=== PATIENT | male | born 1965 | race Caucasian/White ===

== ENCOUNTER 2017-11-12 16:27 | Inpatient (IN) | payer OTHER ==
[~2017-11-12] VITALS: Ht 170.2 cm; Wt 61.5 kg
[2017-11-12] MEDS ORDERED: SUCCINYLCHOLINE CHLORIDE 20 MG/ML 10 ML VIAL IM ONE (16:41)
[2017-11-12] MEDS ORDERED: ETOMIDATE 2 MG/ML 10 ML VIAL IV ONE (16:41)
[2017-11-12] MEDS ORDERED: ETOMIDATE 2 MG/ML 10 ML VIAL IVP ONE (16:45)
[2017-11-12] MEDS ORDERED: SODIUM CHLORIDE 0.9% 1,000 ML IV ONE ×2 (16:45→18:00)
[2017-11-12] MEDS ORDERED: SUCCINYLCHOLINE CHLORIDE 20 MG/ML 10 ML VIAL IVP ONE ×2 (16:45)
[2017-11-12 16:54] LABS: BASOPHILS % (AUTO) 0.4 % (0.0-2.0); EOSINOPHILS % (AUTO) 0 % (1.0-6.0); HEMATOCRIT 27.1 % (41-53); HEMOGLOBIN 9.4 g/dL (13.5-17.5); LYMPHOCYTES % (AUTO) 4.7 % (22.0-44.0); MEAN CORPUSCULAR HEMOGLOBIN 29.8 pg (26.0-34.0); MEAN CORPUSCULAR HGB CONC 34.8 G/dL (31.0-37.0); MEAN CORPUSCULAR VOLUME 86 fL (80-100); MONOCYTES % (AUTO) 14.5 % (2.0-9.0); NEUTROPHILS # (AUTO) 16.8 K/uL (1.8-7.7); NEUTROPHILS % (AUTO) 80.4 % (40.0-70.0); PLATELET COUNT (AUTO) 357 K/uL (150-450); RED BLOOD CELL COUNT(AUTO) 3.17 MIL/uL (4.50-5.90); RED CELL DISTRIBUTION WIDTH 19.1 % (11.5-14.5)
[2017-11-12] MEDS ORDERED: ACETAMINOPHEN 1000 MG/ISO-OSM 100 ML IV ONE (17:00)
[2017-11-12 17:05] LABS: INR 1.5 (0.9-1.1); PROTHROMBIN TIME 15.4 SEC (9.4-11.6)
[2017-11-12 17:23] LABS: ABG A-A DIFF O2 171.3 mmHg (10-20.0); ABG BASE EXCESS -11.5 mmol/L (-2.0-3.0); ABG CARBOXYHEMOGLOBIN 0.2 % (0.0-1.5); ABG HCO3 15.9 mmol/L (22.0-26.0); ABG METHEMOGLOBIN 0.6 % (0.0-1.5); ABG OXYGEN CONTENT 14.6 mL/dL (15.0-23.0); ABG OXYGEN SATURATION 99.7 % (95.0-98.0); ABG OXYHEMOGLOBIN 98.9 % (94.0-100.0); ABG PCO2 41 mmHg (35-45); ABG PH 7.217 (7.35-7.450); ABG TOTAL HEMOGLOBIN 9.5 G/dL (12.0-18.0); PO2, ARTERIAL BG 496.4 mmHg (84.0-92.0); SOURCE, BLOOD GAS ARTERIAL; TEMPERATURE, FAHRENHEIT, BG 101.4 FAHREN (96.0-98.6)
[2017-11-12 17:25] LABS: B-TYPE NATRIURETIC PEPTIDE 316 pg/mL (0-100)
[2017-11-12 17:29] LABS: ALANINE AMINOTRANSFERASE 29 U/L (12-78); ALKALINE PHOSPHATASE 180 U/L (46-116); ANION GAP 14 mmol/L (8-16); ASPARTATE AMINOTRANSFERASE 61 U/L (15-37); BILIRUBIN,TOTAL 3.3 mg/dL (0.1-1.0); CALCIUM, TOTAL 7.8 mg/dL (8.8-10.5); CARBON DIOXIDE 16 mmol/L (22-29); CHLORIDE 95 mmol/L (98-107); CREATINE KINASE MB 0.8 ng/mL (0-5); CREATINE KINASE, TOTAL 316 U/L (39-308); CREATININE 5.41 mg/dL (0.60-1.30); GLOMERULAR FILTR. RATE CALC 11 mL/min (>60); GLUCOSE,RANDOM 112 mg/dL (70-110); POTASSIUM 4.5 mmol/L (3.5-5.1); SODIUM SERUM 125 mmol/L (136-145); UREA NITROGEN, BLOOD 71 mg/dL (7-18)
[2017-11-12 17:30] LABS: ALBUMIN 1.6 g/dL (3.4-5.0); TOTAL PROTEIN, SERUM 8.8 g/dL (6.4-8.2)
[2017-11-12 17:30] LABS: APPEARANCE,URINE TURBID (CLEAR); GLUCOSE, URINE (UA) NEGATIVE (NEGATIVE); KETONES,URINE 40 mg/dL (NEGATIVE); LEUKOCYTE ESTERASE ,URINE LARGE (NEGATIVE); NITRATE,URINE POSITIVE (NEGATIVE); OCCULT BLOOD,URINE LARGE (NEGATIVE); PROTEIN,URINE SEE CONFIRM (NEGATIVE)
[2017-11-12 17:31] LABS: BILIRUBIN,URINE PRELIM. POSITIVE (NEGATIVE)
[2017-11-12 17:34] LABS: SULFOSALICYLIC ACID,URINE 4+ (Negative)
[2017-11-12 17:35] LABS: RBC,URINE Full Field /HPF (0-2)
[2017-11-12 17:36] LABS: BACTERIA,URINE Moderate /HPF (None Seen); SQUAMOUS EPITHELIAL CELL,UR Few /LPF (None Seen); TRANSITIONAL EPI CELLS,URINE Rare /LPF (None Seen); WBC,URINE 51-100 /HPF (0-5)
[2017-11-12 17:37] LABS: RENAL EPITHELIAL CELLS,URINE Rare /LPF (None Seen)
[2017-11-12 17:39] LABS: O2 DEVICE,BLOOD GAS VENTILATOR (ROOM AIR); SITE, BLOOD GAS RT RADIAL; VT, ABG 500 ml
[2017-11-12] MEDS: PROPOFOL 1000 MG/ISO-OSM 100 ML IV PRN ×2 (17:44→21:23)
[2017-11-12] MEDS ORDERED: CefTRIAXone SODIUM 1 GM in DEXTROSE 5%-WATER 10 ML IV ONE (17:45)
[2017-11-12] MEDS ORDERED: AZITHROMYCIN 500 MG/NS 250 ML IV ONE (17:45)
[2017-11-12 18:41] LABS: LACTIC ACID 2.9 mmol/L (0.4-2.0)
[2017-11-12 19:20] LABS: INFLUENZA TYPE A NEGATIVE FOR TYPE A (NEGATIVE); INFLUENZA TYPE B NEGATIVE FOR TYPE B (NEGATIVE)
[2017-11-12] MEDS ORDERED: ALBUTEROL SULFATE 2.5 MG/0.5 ML NEB SOLUTION NEB PRN (19:45)
[2017-11-12] MEDS ORDERED: VANCOMYCIN HCL 1 GM/D5% WATER 200 ML IV PRN (19:45)
[2017-11-12] MEDS ORDERED: IPRATROPIUM BROMIDE 0.5 MG/2.5 ML NEB SOLUTION NEB PRN (19:45)
[2017-11-12] MEDS ORDERED: VANCOMYCIN HCL 1 GM/D5% WATER 200 ML IV ONE (19:45)
[2017-11-12] MEDS ORDERED: ONDANSETRON HCL 4 MG/2 ML VIAL IVP PRN (19:45)
[2017-11-12] MEDS ORDERED: ACETAMINOPHEN 325 MG TABLET PO PRN (19:45)
[2017-11-12] MEDS ORDERED: BISACODYL 10 MG RECTAL RECTAL SUPPOSITORY PR PRN (19:45)
[2017-11-12 20:03] LABS: CALCIUM, TOTAL 7.2 mg/dL (8.8-10.5); CREATININE 5.21 mg/dL (0.60-1.30); POTASSIUM 4.2 mmol/L (3.5-5.1)
[2017-11-12 20:30] LABS: HEMOGLOBIN 8.4 g/dL (13.5-17.5)
[2017-11-12 21:00] VITALS: BP 132/78
[2017-11-12 21:12] LABS: LACTIC ACID 2.4 mmol/L (0.4-2.0)
[2017-11-12] MEDS ORDERED: SODIUM CHLORIDE 0.9% 250 ML IV ONE (21:19)
[2017-11-12] MEDS: PIPERACILLIN SODIUM/TAZOBACTAM 2.25 GM in DEXTROSE 5%-WATER 50 ML IV SCH (21:21)
[2017-11-12] MEDS: SODIUM BICARBONATE 150 MEQ in DEXTROSE 5%-WATER 1,000 ML IV SCH (21:23)
[2017-11-13] VITALS (12 sets, daily range): BP systolic 89–129; BP diastolic 58–83
[2017-11-13] MEDS ORDERED: INFLUENZA VIRUS VACCINE QVS 2017-18 (3YR+)/PF 60 MCG/0.5 ML SYRINGE IM ONE (00:30)
[2017-11-13] MEDS ORDERED: PNEUMOCOCCAL VACCINE POLYVALENT 0.5 ML VIAL [PPSV23] IM ONE (00:30)
[2017-11-13 02:23] LABS: HEMOGLOBIN 7.1 g/dL (13.5-17.5)
[2017-11-13 02:30] LABS: HEMATOCRIT 20.5 % (41-53)
[2017-11-13 02:34] LABS: CALCIUM, TOTAL 7.2 mg/dL (8.8-10.5); CREATININE 5.75 mg/dL (0.60-1.30); POTASSIUM 3.6 mmol/L (3.5-5.1)
[2017-11-13] MEDS: PIPERACILLIN SODIUM/TAZOBACTAM 2.25 GM in DEXTROSE 5%-WATER 50 ML IV SCH ×3 (04:11→21:11)
[2017-11-13 06:03] LABS: AMPHET/METH SCREEN,URINE NEGATIVE (NEGATIVE); BARBITURATE SCREEN, URINE NEGATIVE (NEGATIVE); BENZODIAZEPINES SCREEN,URINE NEGATIVE (NEGATIVE); CANNABINOID SCREEN,URINE NEGATIVE (NEGATIVE); COCAINE SCREEN,URINE NEGATIVE (NEGATIVE); METHADONE SCREEN, URINE NEGATIVE (NEGATIVE); OPIATE SCREEN,URINE NEGATIVE (NEGATIVE)
[2017-11-13 06:06] LABS: PHENCYCLIDINE SCREEN,URINE NEGATIVE (NEGATIVE)
[2017-11-13] MEDS: SODIUM BICARBONATE 150 MEQ in DEXTROSE 5%-WATER 1,000 ML IV SCH ×2 (06:32→21:11)
[2017-11-13 06:54] LABS: BASOPHILS % (AUTO) 0.2 % (0.0-2.0); EOSINOPHILS % (AUTO) 0.1 % (1.0-6.0); HEMOGLOBIN 7.2 g/dL (13.5-17.5); LYMPHOCYTES # (AUTO) 2.1 K/uL (1.0-4.8); MEAN CORPUSCULAR VOLUME 86 fL (80-100); MONOCYTES # (AUTO) 2.7 K/uL (0.1-1.0); MONOCYTES % (AUTO) 12.6 % (2.0-9.0); NEUTROPHILS # (AUTO) 16.4 K/uL (1.8-7.7); NEUTROPHILS % (AUTO) 77.1 % (40.0-70.0); PLATELET COUNT (AUTO) 193 K/uL (150-450); RED CELL DISTRIBUTION WIDTH 18.7 % (11.5-14.5)
[2017-11-13 06:58] LABS: HEMATOCRIT 20.5 % (41-53)
[2017-11-13 07:11] LABS: % IRON SATURATION 21.3 % (30-44)
[2017-11-13 07:23] LABS: ALBUMIN 1.1 g/dL (3.4-5.0); CALCIUM, TOTAL 7.3 mg/dL (8.8-10.5); CHOL/HDL RATIO 11.8 (4.2-7.3); CREATININE 5.66 mg/dL (0.60-1.30); FREE T4 (FREE THYROXINE) 0.97 ng/dL (0.76-1.46); MAGNESIUM 1.6 mg/dL (1.80-2.40); PHOSPHORUS 6.1 mg/dL (2.5-4.9); POTASSIUM 3.5 mmol/L (3.5-5.1); THYROID STIMULATING HORMONE 1.38 uIU/mL (0.36-3.74); TOTAL PROTEIN, SERUM 6.6 g/dL (6.4-8.2)
[2017-11-13] MEDS ORDERED: PANTOPRAZOLE SODIUM 40 MG/VIAL IVP SCH (09:00)
[2017-11-13] MEDS: PANTOPRAZOLE SODIUM 40 MG/VIAL IVP SCH ×2 (09:05→21:11)
[2017-11-13] MEDS: EPOETIN ALFA 10,000 UNITS/ML VIAL SQ SCH (09:05)
[2017-11-13] MEDS ORDERED: PERMETHRIN 5% 60 GM CREAM TP ONE (10:00)
[2017-11-13 10:13] LABS: ABG A-A DIFF O2 100.5 mmHg (10-20.0); ABG BASE EXCESS -6.4 mmol/L (-2.0-3.0); ABG CARBOXYHEMOGLOBIN 0.1 % (0.0-1.5); ABG HCO3 20.1 mmol/L (22.0-26.0); ABG METHEMOGLOBIN 0.4 % (0.0-1.5); ABG OXYGEN CONTENT 11.2 mL/dL (15.0-23.0); ABG OXYGEN SATURATION 98.8 % (95.0-98.0); ABG OXYHEMOGLOBIN 98.3 % (94.0-100.0); ABG PH 7.544 (7.35-7.450); PO2, ARTERIAL BG 126.8 mmHg (84.0-92.0); SOURCE, BLOOD GAS ARTERIAL; TEMPERATURE, FAHRENHEIT, BG 98.6 FAHREN (96.0-98.6)
[2017-11-13 10:17] LABS: ABG PCO2 19 mmHg (35-45); ABG TOTAL HEMOGLOBIN 7.9 G/dL (12.0-18.0); O2 DEVICE,BLOOD GAS VENTILATOR (ROOM AIR); SITE, BLOOD GAS RT RADIAL
[2017-11-13 10:18] LABS: PEEP,BG 5 cm H2O; VT, ABG 500 ml
[2017-11-13] MEDS ORDERED: FUROSEMIDE 20 MG/2 ML VIAL IVP ONE (11:30)
[2017-11-13] MEDS: LACTULOSE 20 GM/30 ML SOLUTION UDCUP PO SCH ×3 (11:50→23:36)
[2017-11-13] MEDS ORDERED: SODIUM CHLORIDE 0.9% 250 ML IV ONE ×3 (11:51→16:22)
[2017-11-13] MEDS ORDERED: MAGNESIUM SULFATE 1 GM in DEXTROSE 5%-WATER 50 ML IV ONE ×2 (12:00→12:30)
[2017-11-13] MEDS: SOD FERRIC GLUC COMPLX/SUCROSE 125 MG in SODIUM CHLORIDE 0.9% 100 ML IV SCH (13:29)
[2017-11-13 14:30] LABS: HEMATOCRIT 21.7 % (41-53); HEMOGLOBIN 7.5 g/dL (13.5-17.5)
[2017-11-13] MEDS: PROPOFOL 1000 MG/ISO-OSM 100 ML IV PRN (16:45)
[2017-11-13 20:45] LABS: HEMATOCRIT 26.9 % (41-53); HEMOGLOBIN 9.2 g/dL (13.5-17.5)
[2017-11-14] VITALS (9 sets, daily range): BP systolic 107–121; BP diastolic 58–72
[2017-11-14] MEDS ORDERED: HEPARIN SODIUM,PORCINE 1,000 UNITS/ML VIAL IVP ONE ×3 (01:38→10:15)
[2017-11-14] MEDS: PROPOFOL 1000 MG/ISO-OSM 100 ML IV PRN ×3 (02:13→20:40)
[2017-11-14 02:30] LABS: HEMOGLOBIN 8.3 g/dL (13.5-17.5)
[2017-11-14] MEDS: PIPERACILLIN SODIUM/TAZOBACTAM 2.25 GM in DEXTROSE 5%-WATER 50 ML IV SCH ×3 (05:20→20:40)
[2017-11-14] MEDS: LACTULOSE 20 GM/30 ML SOLUTION UDCUP PO SCH ×4 (05:20→23:25)
[2017-11-14 05:30] LABS: BASOPHILS % (AUTO) 0.4 % (0.0-2.0); EOSINOPHILS % (AUTO) 1.4 % (1.0-6.0); HEMATOCRIT 23.3 % (41-53); HEMOGLOBIN 8.2 g/dL (13.5-17.5); LYMPHOCYTES # (AUTO) 1.2 K/uL (1.0-4.8); LYMPHOCYTES % (AUTO) 8.9 % (22.0-44.0); MEAN CORPUSCULAR HEMOGLOBIN 30.2 pg (26.0-34.0); MEAN CORPUSCULAR HGB CONC 35.2 G/dL (31.0-37.0); MEAN CORPUSCULAR VOLUME 86 fL (80-100); MONOCYTES # (AUTO) 1.6 K/uL (0.1-1.0); MONOCYTES % (AUTO) 12.1 % (2.0-9.0); NEUTROPHILS # (AUTO) 10.2 K/uL (1.8-7.7); NEUTROPHILS % (AUTO) 77.2 % (40.0-70.0); PLATELET COUNT (AUTO) 158 K/uL (150-450); RED BLOOD CELL COUNT(AUTO) 2.72 MIL/uL (4.50-5.90); RED CELL DISTRIBUTION WIDTH 18.3 % (11.5-14.5)
[2017-11-14 05:43] LABS: CALCIUM, TOTAL 7.3 mg/dL (8.8-10.5); CREATININE 6.03 mg/dL (0.60-1.30); MAGNESIUM 1.9 mg/dL (1.80-2.40); PHOSPHORUS 6.4 mg/dL (2.5-4.9); POTASSIUM 3.4 mmol/L (3.5-5.1); THYROID STIMULATING HORMONE 1.71 uIU/mL (0.36-3.74); VANCOMYCIN,RANDOM 15.1 mcg/mL (25.0-50.0)
[2017-11-14] MEDS: SODIUM BICARBONATE 150 MEQ in DEXTROSE 5%-WATER 1,000 ML IV SCH (07:50)
[2017-11-14] MEDS: PANTOPRAZOLE SODIUM 40 MG/VIAL IVP SCH ×2 (07:52→20:39)
[2017-11-14] MEDS ORDERED: DEXTROSE 50%-WATER 25 GM/50 ML SYRINGE IVP PRN (08:00)
[2017-11-14 08:26] LABS: HEMATOCRIT 23.9 % (41-53); HEMOGLOBIN 8.3 g/dL (13.5-17.5)
[2017-11-14] MEDS ORDERED: MORPHINE SULFATE 2 MG/ML SYRINGE ONE (09:55)
[2017-11-14] MEDS ORDERED: MORPHINE SULFATE 2 MG/ML SYRINGE IVP ONE (10:00)
[2017-11-14 14:17] LABS: HEMATOCRIT 23.8 % (41-53); HEMOGLOBIN 8.4 g/dL (13.5-17.5)
[2017-11-14] MEDS: SOD FERRIC GLUC COMPLX/SUCROSE 125 MG in SODIUM CHLORIDE 0.9% 100 ML IV SCH (14:29)
[2017-11-14 15:37] LABS: CREATININE,URINE RANDOM 124.3 mg/dL (30.0-125.0)
[2017-11-14] MEDS ORDERED: VANCOMYCIN HCL 1 GM/D5% WATER 200 ML IV ONE (16:00)
[2017-11-14 17:43] LABS: ABG A-A DIFF O2 107.8 mmHg (10-20.0); ABG BASE EXCESS 2.4 mmol/L (-2.0-3.0); ABG CARBOXYHEMOGLOBIN 0.5 % (0.0-1.5); ABG HCO3 26.8 mmol/L (22.0-26.0); ABG OXYGEN CONTENT 13.3 mL/dL (15.0-23.0); ABG OXYHEMOGLOBIN 97.5 % (94.0-100.0); ABG PCO2 32 mmHg (35-45); ABG PH 7.519 (7.35-7.450); ABG TOTAL HEMOGLOBIN 9.6 G/dL (12.0-18.0); PO2, ARTERIAL BG 105.2 mmHg (84.0-92.0); TEMPERATURE, FAHRENHEIT, BG 97.8 FAHREN (96.0-98.6)
[2017-11-14 17:45] LABS: O2 DEVICE,BLOOD GAS VENTILATOR (ROOM AIR); SITE, BLOOD GAS RT RADIAL; SOURCE, BLOOD GAS ARTERIAL; VT, ABG 450 ml
[2017-11-14 17:46] LABS: PEEP,BG 5 cm H2O; SPONTANEOUS VT, BG 419 ml
[2017-11-14 18:33] LABS: GLUCOSE,POINT OF CARE 107 MG/DL (70-110)
[2017-11-15] VITALS (8 sets, daily range): BP systolic 99–116; BP diastolic 53–65
[2017-11-15] MEDS: PROPOFOL 1000 MG/ISO-OSM 100 ML IV PRN ×3 (03:50→21:28)
[2017-11-15] MEDS: LACTULOSE 20 GM/30 ML SOLUTION UDCUP PO SCH ×4 (05:05→23:56)
[2017-11-15] MEDS: PIPERACILLIN SODIUM/TAZOBACTAM 2.25 GM in DEXTROSE 5%-WATER 50 ML IV SCH ×3 (05:05→20:52)
[2017-11-15 05:21] LABS: EOSINOPHILS % (AUTO) 2.3 % (1.0-6.0); HEMATOCRIT 24.2 % (41-53); HEMOGLOBIN 8.4 g/dL (13.5-17.5); LYMPHOCYTES # (AUTO) 1.2 K/uL (1.0-4.8); LYMPHOCYTES % (AUTO) 10.1 % (22.0-44.0); MEAN CORPUSCULAR HEMOGLOBIN 30.1 pg (26.0-34.0); MEAN CORPUSCULAR HGB CONC 34.6 G/dL (31.0-37.0); MEAN CORPUSCULAR VOLUME 87 fL (80-100); MONOCYTES # (AUTO) 1.2 K/uL (0.1-1.0); MONOCYTES % (AUTO) 10.7 % (2.0-9.0); NEUTROPHILS # (AUTO) 8.8 K/uL (1.8-7.7); NEUTROPHILS % (AUTO) 75.9 % (40.0-70.0); PLATELET COUNT (AUTO) 141 K/uL (150-450); RED BLOOD CELL COUNT(AUTO) 2.78 MIL/uL (4.50-5.90); RED CELL DISTRIBUTION WIDTH 18.4 % (11.5-14.5)
[2017-11-15 05:40] LABS: CALCIUM, TOTAL 7.5 mg/dL (8.8-10.5); CREATININE 4.86 mg/dL (0.60-1.30); MAGNESIUM 1.8 mg/dL (1.80-2.40); PHOSPHORUS 5.3 mg/dL (2.5-4.9); POTASSIUM 3.1 mmol/L (3.5-5.1)
[2017-11-15 05:52] LABS: GLUCOSE,POINT OF CARE 91 MG/DL (70-110)
[2017-11-15 05:52] LABS: GLUCOSE,POINT OF CARE 113 MG/DL (70-110)
[2017-11-15] MEDS ORDERED: SODIUM CHLORIDE 0.9% 500 ML IV ONE (07:35)
[2017-11-15 08:35] LABS: ABG A-A DIFF O2 97.2 mmHg (10-20.0); ABG BASE EXCESS 0.4 mmol/L (-2.0-3.0); ABG CARBOXYHEMOGLOBIN 0.3 % (0.0-1.5); ABG HCO3 25.2 mmol/L (22.0-26.0); ABG METHEMOGLOBIN 0.2 % (0.0-1.5); ABG OXYGEN CONTENT 12.8 mL/dL (15.0-23.0); ABG OXYGEN SATURATION 98.6 % (95.0-98.0); ABG OXYHEMOGLOBIN 98.1 % (94.0-100.0); ABG PCO2 32 mmHg (35-45); ABG PH 7.491 (7.35-7.450); ABG TOTAL HEMOGLOBIN 9.1 G/dL (12.0-18.0); PO2, ARTERIAL BG 115.4 mmHg (84.0-92.0); SOURCE, BLOOD GAS ARTERIAL; TEMPERATURE, FAHRENHEIT, BG 98.6 FAHREN (96.0-98.6)
[2017-11-15 08:39] LABS: SITE, BLOOD GAS LFT RADIAL
[2017-11-15 08:40] LABS: O2 DEVICE,BLOOD GAS VENTILATOR (ROOM AIR); PEEP,BG 5 cm H2O; VT, ABG 450 ml
[2017-11-15] MEDS ORDERED: SODIUM CHLORIDE 0.9% 2,000 ML IV ONE (09:13)
[2017-11-15] MEDS: EPOETIN ALFA 10,000 UNITS/ML VIAL SQ SCH (09:16)
[2017-11-15] MEDS: PANTOPRAZOLE SODIUM 40 MG/VIAL IVP SCH ×2 (09:16→20:52)
[2017-11-15] MEDS ORDERED: HEPARIN SODIUM,PORCINE 1,000 UNITS/ML VIAL IVP ONE ×3 (11:45→17:50)
[2017-11-15] MEDS ORDERED: MANNITOL 25%-12.5 GM/50 ML VIAL IVP PRN (11:45)
[2017-11-15] MEDS: SOD FERRIC GLUC COMPLX/SUCROSE 125 MG in SODIUM CHLORIDE 0.9% 100 ML IV SCH (13:58)
[2017-11-15 16:30] LABS: HEMATOCRIT 25.9 % (41-53); HEMOGLOBIN 8.9 g/dL (13.5-17.5)
[2017-11-15] MEDS ORDERED: SODIUM CHLORIDE 0.9% 250 ML IV ONE (17:34)
[2017-11-15] MEDS: METOCLOPRAMIDE HCL 5 MG/ML 2 ML VIAL IVP SCH (17:37)
[2017-11-16] VITALS: BP 105/54
[2017-11-16] MEDS: METOCLOPRAMIDE HCL 5 MG/ML 2 ML VIAL IVP SCH ×4 (00:15→23:39)
[2017-11-16 04:00] VITALS: BP 108/59
[2017-11-16] MEDS: PIPERACILLIN SODIUM/TAZOBACTAM 2.25 GM in DEXTROSE 5%-WATER 50 ML IV SCH ×3 (04:53→21:12)
[2017-11-16] MEDS: LACTULOSE 20 GM/30 ML SOLUTION UDCUP PO SCH ×4 (05:12→23:39)
[2017-11-16 05:18] LABS: BASOPHILS % (AUTO) 1.2 % (0.0-2.0); EOSINOPHILS % (AUTO) 3.5 % (1.0-6.0); HEMOGLOBIN 8.3 g/dL (13.5-17.5); LYMPHOCYTES # (AUTO) 1.5 K/uL (1.0-4.8); MEAN CORPUSCULAR HGB CONC 34.5 G/dL (31.0-37.0); MEAN CORPUSCULAR VOLUME 87 fL (80-100); MONOCYTES # (AUTO) 1.5 K/uL (0.1-1.0); MONOCYTES % (AUTO) 13.9 % (2.0-9.0); NEUTROPHILS # (AUTO) 7.4 K/uL (1.8-7.7); NEUTROPHILS % (AUTO) 67.4 % (40.0-70.0); RED BLOOD CELL COUNT(AUTO) 2.76 MIL/uL (4.50-5.90); RED CELL DISTRIBUTION WIDTH 18.6 % (11.5-14.5)
[2017-11-16 05:54] LABS: CALCIUM, TOTAL 7.8 mg/dL (8.8-10.5); CREATININE 3.95 mg/dL (0.60-1.30); MAGNESIUM 1.8 mg/dL (1.80-2.40); POTASSIUM 3.5 mmol/L (3.5-5.1)
[2017-11-16] MEDS: PROPOFOL 1000 MG/ISO-OSM 100 ML IV PRN ×3 (06:35→17:02)
[2017-11-16 07:31] LABS: PLATELET COUNT (AUTO) 142 K/uL (150-450)
[2017-11-16 08:00] VITALS: BP 118/64
[2017-11-16 08:14] LABS: ABG A-A DIFF O2 100.2 mmHg (10-20.0); ABG BASE EXCESS 1.6 mmol/L (-2.0-3.0); ABG CARBOXYHEMOGLOBIN 0.8 % (0.0-1.5); ABG HCO3 25.9 mmol/L (22.0-26.0); ABG METHEMOGLOBIN 0.2 % (0.0-1.5); ABG OXYGEN CONTENT 12.4 mL/dL (15.0-23.0); ABG OXYGEN SATURATION 98.1 % (95.0-98.0); ABG OXYHEMOGLOBIN 97.1 % (94.0-100.0); ABG PCO2 37 mmHg (35-45); ABG PH 7.454 (7.35-7.450); ABG TOTAL HEMOGLOBIN 8.9 G/dL (12.0-18.0); O2 DEVICE,BLOOD GAS VENTILATOR (ROOM AIR); PEEP,BG 5 cm H2O; PO2, ARTERIAL BG 106.5 mmHg (84.0-92.0); SITE, BLOOD GAS RT RADIAL; SOURCE, BLOOD GAS ARTERIAL; TEMPERATURE, FAHRENHEIT, BG 97.8 FAHREN (96.0-98.6); VT, ABG 450 ml
[2017-11-16] MEDS: PANTOPRAZOLE SODIUM 40 MG/VIAL IVP SCH ×2 (08:22→21:12)
[2017-11-16 11:23] LABS: ORGANISM ID Not indicated.; S PNEUMO SOURCE Urine; STREP PNEUMONIAE AG URINE Negative (Negative); STREP.PNEUMO BODY FLUID CULT. Not Indicated
[2017-11-16 12:25] LABS: LEGIONELLA PNEUMO AG URINE Negative (Negative)
[2017-11-16] MEDS: SOD FERRIC GLUC COMPLX/SUCROSE 125 MG in SODIUM CHLORIDE 0.9% 100 ML IV SCH (13:17)
[2017-11-16 14:00] VITALS: BP 111/62
[2017-11-16 14:04] LABS: GLUCOSE,POINT OF CARE 99 MG/DL (70-110)
[2017-11-16 14:04] LABS: GLUCOSE,POINT OF CARE 104 MG/DL (70-110)
[2017-11-16 14:05] LABS: GLUCOSE,POINT OF CARE 106 MG/DL (70-110)
[2017-11-16 14:05] LABS: GLUCOSE,POINT OF CARE 108 MG/DL (70-110)
[2017-11-16 16:00] VITALS: BP 11/59
[2017-11-16 16:53] LABS: GLUCOSE,POINT OF CARE 109 MG/DL (70-110)
[2017-11-16 18:27] LABS: GLUCOSE,POINT OF CARE 108 MG/DL (70-110)
[2017-11-16 20:00] VITALS: BP 116/65
[2017-11-16] MEDS ORDERED: SODIUM CHLORIDE 0.9% 250 ML IV ONE (21:07)
[2017-11-17] VITALS (7 sets, daily range): BP systolic 106–120; BP diastolic 58–68
[2017-11-17 02:33] LABS: GLUCOSE,POINT OF CARE 101 MG/DL (70-110)
[2017-11-17] MEDS: PIPERACILLIN SODIUM/TAZOBACTAM 2.25 GM in DEXTROSE 5%-WATER 50 ML IV SCH ×3 (05:15→20:49)
[2017-11-17] MEDS: LACTULOSE 20 GM/30 ML SOLUTION UDCUP PO SCH ×4 (05:15→23:48)
[2017-11-17] MEDS: PROPOFOL 1000 MG/ISO-OSM 100 ML IV PRN ×3 (05:15→16:56)
[2017-11-17 05:39] LABS: CALCIUM, TOTAL 7.7 mg/dL (8.8-10.5); CREATININE 5.17 mg/dL (0.60-1.30); POTASSIUM 3.6 mmol/L (3.5-5.1); VANCOMYCIN,RANDOM 17.4 mcg/mL (25.0-50.0)
[2017-11-17 07:01] LABS: BASOPHILS % (AUTO) 1.1 % (0.0-2.0); EOSINOPHILS % (AUTO) 4.2 % (1.0-6.0); HEMATOCRIT 23.6 % (41-53); HEMOGLOBIN 8.2 g/dL (13.5-17.5); LYMPHOCYTES # (AUTO) 1.8 K/uL (1.0-4.8); LYMPHOCYTES % (AUTO) 15.7 % (22.0-44.0); MEAN CORPUSCULAR HEMOGLOBIN 30.4 pg (26.0-34.0); MEAN CORPUSCULAR HGB CONC 34.8 G/dL (31.0-37.0); MEAN CORPUSCULAR VOLUME 87 fL (80-100); MONOCYTES % (AUTO) 17.4 % (2.0-9.0); NEUTROPHILS # (AUTO) 7.1 K/uL (1.8-7.7); NEUTROPHILS % (AUTO) 61.6 % (40.0-70.0); PLATELET COUNT (AUTO) 160 K/uL (150-450); RED CELL DISTRIBUTION WIDTH 18.9 % (11.5-14.5)
[2017-11-17 07:43] LABS: GLUCOSE,POINT OF CARE 102 MG/DL (70-110)
[2017-11-17 08:00] LABS: ABG A-A DIFF O2 92.9 mmHg (10-20.0); ABG BASE EXCESS 0.9 mmol/L (-2.0-3.0); ABG CARBOXYHEMOGLOBIN 0.3 % (0.0-1.5); ABG HCO3 25.4 mmol/L (22.0-26.0); ABG METHEMOGLOBIN 0.4 % (0.0-1.5); ABG OXYGEN SATURATION 98.5 % (95.0-98.0); ABG OXYHEMOGLOBIN 97.8 % (94.0-100.0); ABG PCO2 36 mmHg (35-45); ABG PH 7.456 (7.35-7.450); ABG TOTAL HEMOGLOBIN 9.3 G/dL (12.0-18.0); O2 DEVICE,BLOOD GAS VENTILATOR (ROOM AIR); PEEP,BG 5 cm H2O; PO2, ARTERIAL BG 115.1 mmHg (84.0-92.0); SITE, BLOOD GAS RT RADIAL; SOURCE, BLOOD GAS ARTERIAL; TEMPERATURE, FAHRENHEIT, BG 97.8 FAHREN (96.0-98.6); VT, ABG 450 ml
[2017-11-17] MEDS: PANTOPRAZOLE SODIUM 40 MG/VIAL IVP SCH ×2 (08:28→20:49)
[2017-11-17] MEDS: METOCLOPRAMIDE HCL 5 MG/ML 2 ML VIAL IVP SCH ×3 (08:28→23:47)
[2017-11-17] MEDS: EPOETIN ALFA 10,000 UNITS/ML VIAL SQ SCH (08:29)
[2017-11-17] MEDS ORDERED: SODIUM CHLORIDE 0.9% 2,000 ML IV ONE (10:27)
[2017-11-17] MEDS ORDERED: MANNITOL 25%-12.5 GM/50 ML VIAL IVP PRN (12:30)
[2017-11-17] MEDS ORDERED: HEPARIN SODIUM,PORCINE 1,000 UNITS/ML VIAL IVP ONE ×3 (12:30→16:47)
[2017-11-17] MEDS: SOD FERRIC GLUC COMPLX/SUCROSE 125 MG in SODIUM CHLORIDE 0.9% 100 ML IV SCH (13:49)
[2017-11-17] MEDS ORDERED: VANCOMYCIN HCL 1 GM/D5% WATER 200 ML IV ONE (18:00)
[2017-11-17 18:18] LABS: GLUCOSE,POINT OF CARE 113 MG/DL (70-110)
[2017-11-17] MEDS: INSULIN REGULAR, HUMAN 100 UNITS/ML SQ PRN (23:43)
[2017-11-18] VITALS (8 sets, daily range): BP systolic 98–120; BP diastolic 51–65
[2017-11-18] MEDS ORDERED: SODIUM CHLORIDE 0.9% 250 ML IV ONE (00:29)
[2017-11-18] MEDS: PROPOFOL 1000 MG/ISO-OSM 100 ML IV PRN ×2 (00:47→06:17)
[2017-11-18] MEDS: INSULIN REGULAR, HUMAN 100 UNITS/ML SQ PRN (04:42)
[2017-11-18] MEDS: PIPERACILLIN SODIUM/TAZOBACTAM 2.25 GM in DEXTROSE 5%-WATER 50 ML IV SCH ×3 (04:47→20:42)
[2017-11-18 05:13] LABS: HEMATOCRIT 24.2 % (41-53); HEMOGLOBIN 8.2 g/dL (13.5-17.5); MEAN CORPUSCULAR HEMOGLOBIN 29.6 pg (26.0-34.0); MEAN CORPUSCULAR HGB CONC 33.7 G/dL (31.0-37.0); MEAN CORPUSCULAR VOLUME 88 fL (80-100); PLATELET COUNT (AUTO) 135 K/uL (150-450); RED BLOOD CELL COUNT(AUTO) 2.76 MIL/uL (4.50-5.90)
[2017-11-18] MEDS: LACTULOSE 20 GM/30 ML SOLUTION UDCUP PO SCH ×4 (05:27→23:40)
[2017-11-18 05:35] LABS: CALCIUM, TOTAL 8.1 mg/dL (8.8-10.5); CREATININE 3.88 mg/dL (0.60-1.30); MAGNESIUM 1.9 mg/dL (1.80-2.40); POTASSIUM 3.5 mmol/L (3.5-5.1)
[2017-11-18 06:07] LABS: BAND NEUTROPHILS % (MANUAL) 3 % (1-5); BASOPHILS % (MANUAL) 1 % (0-2); EOSINOPHILS % (MANUAL) 1 % (1-6); LYMPHOCYTES % (MANUAL) 24 % (22-44); MONOCYTES % (MANUAL) 9 % (2-9); SEGMENTED NEUTROPHILS % 62 % (40-70)
[2017-11-18 06:48] LABS: GLUCOSE,POINT OF CARE 108 MG/DL (70-110)
[2017-11-18 06:48] LABS: GLUCOSE,POINT OF CARE 113 MG/DL (70-110)
[2017-11-18 06:48] LABS: GLUCOSE,POINT OF CARE 103 MG/DL (70-110)
[2017-11-18] MEDS: METOCLOPRAMIDE HCL 5 MG/ML 2 ML VIAL IVP SCH ×3 (07:57→23:41)
[2017-11-18] MEDS: PANTOPRAZOLE SODIUM 40 MG/VIAL IVP SCH ×2 (07:57→20:42)
[2017-11-18 08:12] LABS: ABG A-A DIFF O2 107.6 mmHg (10-20.0); ABG BASE EXCESS -1.8 mmol/L (-2.0-3.0); ABG CARBOXYHEMOGLOBIN 0.6 % (0.0-1.5); ABG HCO3 23.2 mmol/L (22.0-26.0); ABG METHEMOGLOBIN 0.5 % (0.0-1.5); ABG OXYGEN CONTENT 12.5 mL/dL (15.0-23.0); ABG OXYGEN SATURATION 98.1 % (95.0-98.0); ABG PCO2 35 mmHg (35-45); ABG PH 7.429 (7.35-7.450); PO2, ARTERIAL BG 102.1 mmHg (84.0-92.0); SOURCE, BLOOD GAS ARTERIAL; TEMPERATURE, FAHRENHEIT, BG 97.5 FAHREN (96.0-98.6)
[2017-11-18 08:13] LABS: O2 DEVICE,BLOOD GAS VENTILATOR (ROOM AIR); PEEP,BG 5 cm H2O; SITE, BLOOD GAS RT RADIAL; VT, ABG 450 ml
[2017-11-18 12:08] LABS: ABG A-A DIFF O2 117.2 mmHg (10-20.0); ABG BASE EXCESS 1.6 mmol/L (-2.0-3.0); ABG CARBOXYHEMOGLOBIN 0.7 % (0.0-1.5); ABG HCO3 25.8 mmol/L (22.0-26.0); ABG METHEMOGLOBIN 0.3 % (0.0-1.5); ABG OXYGEN CONTENT 12.8 mL/dL (15.0-23.0); ABG OXYGEN SATURATION 97.1 % (95.0-98.0); ABG OXYHEMOGLOBIN 96.1 % (94.0-100.0); ABG PCO2 40 mmHg (35-45); ABG PH 7.433 (7.35-7.450); ABG TOTAL HEMOGLOBIN 9.4 G/dL (12.0-18.0); SITE, BLOOD GAS RT RADIAL; SOURCE, BLOOD GAS ARTERIAL; TEMPERATURE, FAHRENHEIT, BG 97.5 FAHREN (96.0-98.6)
[2017-11-18 12:09] LABS: CPAP, BG 0 cm H2O; O2 DEVICE,BLOOD GAS VENTILATOR (ROOM AIR); PEEP,BG 0 cm H2O; PRESSURE SUPPORT, BG 8 cm H2O; SPONTANEOUS VT, BG 498 ml; VENT MODE, BG SPONTANEOUS (ROOM AIR)
[2017-11-18] MEDS ORDERED: MORPHINE SULFATE 2 MG/ML SYRINGE IVP PRN (12:15)
[2017-11-18 12:52] LABS: GLUCOSE,POINT OF CARE 116 MG/DL (70-110)
[2017-11-18] MEDS: SOD FERRIC GLUC COMPLX/SUCROSE 125 MG in SODIUM CHLORIDE 0.9% 100 ML IV SCH (14:54)
[2017-11-18] MEDS: RIFAXIMIN 550 MG TABLET PO SCH ×2 (15:31→20:42)
[2017-11-18 18:47] LABS: GLUCOSE,POINT OF CARE 74 MG/DL (70-110)
[2017-11-19] VITALS: BP 110/68
[2017-11-19 04:00] VITALS: BP 120/78
[2017-11-19] MEDS ORDERED: SODIUM CHLORIDE 0.9% 250 ML IV ONE ×2 (05:15→12:46)
[2017-11-19 05:21] LABS: BASOPHILS % (AUTO) 1.4 % (0.0-2.0); EOSINOPHILS % (AUTO) 4.9 % (1.0-6.0); HEMATOCRIT 24.2 % (41-53); HEMOGLOBIN 8.3 g/dL (13.5-17.5); LYMPHOCYTES # (AUTO) 1.9 K/uL (1.0-4.8); LYMPHOCYTES % (AUTO) 17.7 % (22.0-44.0); MEAN CORPUSCULAR HEMOGLOBIN 30.2 pg (26.0-34.0); MEAN CORPUSCULAR HGB CONC 34.5 G/dL (31.0-37.0); MEAN CORPUSCULAR VOLUME 88 fL (80-100); MONOCYTES # (AUTO) 1.8 K/uL (0.1-1.0); MONOCYTES % (AUTO) 17.2 % (2.0-9.0); NEUTROPHILS # (AUTO) 6.3 K/uL (1.8-7.7); NEUTROPHILS % (AUTO) 58.8 % (40.0-70.0); PLATELET COUNT (AUTO) 162 K/uL (150-450); RED BLOOD CELL COUNT(AUTO) 2.76 MIL/uL (4.50-5.90); RED CELL DISTRIBUTION WIDTH 18.6 % (11.5-14.5)
[2017-11-19] MEDS: PIPERACILLIN SODIUM/TAZOBACTAM 2.25 GM in DEXTROSE 5%-WATER 50 ML IV SCH ×3 (05:26→20:53)
[2017-11-19 05:48] LABS: CREATININE 5.08 mg/dL (0.60-1.30); PHOSPHORUS 3.5 mg/dL (2.5-4.9); POTASSIUM 3.2 mmol/L (3.5-5.1)
[2017-11-19] MEDS: LACTULOSE 20 GM/30 ML SOLUTION UDCUP PO SCH ×3 (06:35→20:52)
[2017-11-19 06:38] LABS: GLUCOSE,POINT OF CARE 85 MG/DL (70-110)
[2017-11-19 06:38] LABS: GLUCOSE,POINT OF CARE 102 MG/DL (70-110)
[2017-11-19 08:00] VITALS: BP 125/76
[2017-11-19] MEDS: PANTOPRAZOLE SODIUM 40 MG/VIAL IVP SCH ×2 (09:03→20:52)
[2017-11-19] MEDS: METOCLOPRAMIDE HCL 5 MG/ML 2 ML VIAL IVP SCH ×2 (09:03→17:11)
[2017-11-19] MEDS: RIFAXIMIN 550 MG TABLET PO SCH ×3 (09:05→20:52)
[2017-11-19] MEDS ORDERED: POTASSIUM CHL 10 MEQ/WATER 50 ML IV ONE (09:45)
[2017-11-19 11:56] VITALS: BP 102/58
[2017-11-19 12:28] LABS: GLUCOMETER DEV NAME(LOC) 5N 1P; GLUCOSE,POINT OF CARE 102 MG/DL (70-110)
[2017-11-19] MEDS: SOD FERRIC GLUC COMPLX/SUCROSE 125 MG in SODIUM CHLORIDE 0.9% 100 ML IV SCH (13:55)
[2017-11-19 15:33] VITALS: BP 121/69
[2017-11-19] MEDS ORDERED: SODIUM CHLORIDE 0.9% 2,000 ML IV ONE (16:30)
[2017-11-19] MEDS ORDERED: HEPARIN SODIUM,PORCINE 1,000 UNITS/ML VIAL IVP ONE (17:05)
[2017-11-19] MEDS ORDERED: MANNITOL 25%-12.5 GM/50 ML VIAL IVP ONE (17:05)
[2017-11-19 19:57] LABS: GLUCOMETER DEV NAME(LOC) 5N 1P; GLUCOSE,POINT OF CARE 85 MG/DL (70-110)
[2017-11-19] MEDS ORDERED: POTASSIUM CHLORIDE 20 MEQ ER TABLET PO ONE (20:00)
[2017-11-19 20:19] VITALS: BP 130/71
[2017-11-20] VITALS (7 sets, daily range): BP systolic 99–130; BP diastolic 56–86
[2017-11-20] MEDS: METOCLOPRAMIDE HCL 5 MG/ML 2 ML VIAL IVP SCH ×3 (00:14→17:03)
[2017-11-20] MEDS: PIPERACILLIN SODIUM/TAZOBACTAM 2.25 GM in DEXTROSE 5%-WATER 50 ML IV SCH ×3 (06:18→20:50)
[2017-11-20 06:47] LABS: BASOPHILS % (AUTO) 2.4 % (0.0-2.0); EOSINOPHILS % (AUTO) 4.4 % (1.0-6.0); HEMATOCRIT 25.2 % (41-53); HEMOGLOBIN 8.8 g/dL (13.5-17.5); LYMPHOCYTES # (AUTO) 2.1 K/uL (1.0-4.8); MEAN CORPUSCULAR HEMOGLOBIN 30.8 pg (26.0-34.0); MEAN CORPUSCULAR VOLUME 88 fL (80-100); MONOCYTES # (AUTO) 1.7 K/uL (0.1-1.0); MONOCYTES % (AUTO) 15.4 % (2.0-9.0); NEUTROPHILS # (AUTO) 6.4 K/uL (1.8-7.7); NEUTROPHILS % (AUTO) 58.8 % (40.0-70.0); PLATELET COUNT (AUTO) 161 K/uL (150-450); RED BLOOD CELL COUNT(AUTO) 2.86 MIL/uL (4.50-5.90); RED CELL DISTRIBUTION WIDTH 18.4 % (11.5-14.5)
[2017-11-20 07:07] LABS: CALCIUM, TOTAL 8.1 mg/dL (8.8-10.5); CREATININE 5.79 mg/dL (0.60-1.30); MAGNESIUM 2.1 mg/dL (1.80-2.40); PHOSPHORUS 3.4 mg/dL (2.5-4.9); POTASSIUM 3.5 mmol/L (3.5-5.1)
[2017-11-20] MEDS ORDERED: SODIUM CHLORIDE 0.9% 2,000 ML IV ONE (09:09)
[2017-11-20] MEDS: EPOETIN ALFA 10,000 UNITS/ML VIAL SQ SCH (09:15)
[2017-11-20] MEDS: PANTOPRAZOLE SODIUM 40 MG/VIAL IVP SCH ×2 (09:16→20:50)
[2017-11-20] MEDS: LACTULOSE 20 GM/30 ML SOLUTION UDCUP PO SCH ×2 (09:16→20:50)
[2017-11-20] MEDS: RIFAXIMIN 550 MG TABLET PO SCH ×3 (09:17→20:50)
[2017-11-20] MEDS ORDERED: ALBUMIN HUMAN 25%-25GM/100ML 100 ML IV PRN (11:00)
[2017-11-20] MEDS ORDERED: HEPARIN SODIUM,PORCINE 1,000 UNITS/ML VIAL IVP ONE ×2 (11:15)
[2017-11-20] MEDS ORDERED: MANNITOL 25%-12.5 GM/50 ML VIAL IVP PRN (11:15)
[2017-11-20] MEDS: SOD FERRIC GLUC COMPLX/SUCROSE 125 MG in SODIUM CHLORIDE 0.9% 100 ML IV SCH (14:11)
[2017-11-20] MEDS ORDERED: MORPHINE SULFATE 4 MG/ML SYRINGE IVP PRN (17:30)
[2017-11-20 18:52] LABS: GLUCOMETER DEV NAME(LOC) 5N 1P; GLUCOSE,POINT OF CARE 100 MG/DL (70-110)
[2017-11-21] MEDS: METOCLOPRAMIDE HCL 5 MG/ML 2 ML VIAL IVP SCH ×4 (00:29→23:41)
[2017-11-21 04:40] VITALS: BP 121/66
[2017-11-21] MEDS: PIPERACILLIN SODIUM/TAZOBACTAM 2.25 GM in DEXTROSE 5%-WATER 50 ML IV SCH (04:59)
[2017-11-21 07:25] VITALS: BP 124/70
[2017-11-21] MEDS: RIFAXIMIN 550 MG TABLET PO SCH ×3 (09:00→21:08)
[2017-11-21 11:41] VITALS: BP 93/56
[2017-11-21] MEDS ORDERED: ALBUMIN HUMAN 25%-12.5GM/50ML IV BOTTLE IV ONE (12:31)
[2017-11-21] MEDS ORDERED: HEPARIN SODIUM,PORCINE 1,000 UNITS/ML VIAL IVP ONE ×2 (12:31→16:45)
[2017-11-21] MEDS ORDERED: MANNITOL 25%-12.5 GM/50 ML VIAL IVP ONE (12:31)
[2017-11-21] MEDS ORDERED: *CLINICAL-LEVOFLOXACIN ORAL DOSING CLINICAL ONE (13:30)
[2017-11-21] MEDS ORDERED: LEVOFLOXACIN 250 MG TABLET PO ONE (14:00)
[2017-11-21] MEDS ORDERED: LEVOFLOXACIN 750 MG/D5% WATER 150 ML IV ONE (14:00)
[2017-11-21] MEDS: LACTULOSE 20 GM/30 ML SOLUTION UDCUP PO SCH ×2 (14:40→21:08)
[2017-11-21] MEDS: PANTOPRAZOLE SODIUM 40 MG/VIAL IVP SCH ×2 (14:41→21:08)
[2017-11-21] MEDS ORDERED: VANCOMYCIN HCL 1 GM/D5% WATER 200 ML IV ONE (15:00)
[2017-11-21 16:27] VITALS: BP 116/71
[2017-11-21 19:34] VITALS: BP 127/78
[2017-11-21 23:18] VITALS: BP 127/66
[2017-11-22 00:33] LABS: GLUCOMETER DEV NAME(LOC) 5N 1P; GLUCOSE,POINT OF CARE 83 MG/DL (70-110)
[2017-11-22 00:33] LABS: GLUCOMETER DEV NAME(LOC) 5N 1P; GLUCOSE,POINT OF CARE 86 MG/DL (70-110)
[2017-11-22 05:16] VITALS: BP 140/77
[2017-11-22 07:08] LABS: GLUCOMETER DEV NAME(LOC) 5S 2N; GLUCOSE,POINT OF CARE 85 MG/DL (70-110)
[2017-11-22 07:08] LABS: GLUCOMETER DEV NAME(LOC) 5S 2N; GLUCOSE,POINT OF CARE 89 MG/DL (70-110)
[2017-11-22 07:08] LABS: GLUCOMETER DEV NAME(LOC) 5S 2N; GLUCOSE,POINT OF CARE 102 MG/DL (70-110)
[2017-11-22 07:08] LABS: GLUCOMETER DEV NAME(LOC) 5S 2N; GLUCOSE,POINT OF CARE 97 MG/DL (70-110)
[2017-11-22 08:06] VITALS: BP 131/72
[2017-11-22 08:39] LABS: BASOPHILS % (AUTO) 1.3 % (0.0-2.0); EOSINOPHILS % (AUTO) 2.2 % (1.0-6.0); HEMATOCRIT 23.6 % (41-53); HEMOGLOBIN 8.3 g/dL (13.5-17.5); LYMPHOCYTES # (AUTO) 1.8 K/uL (1.0-4.8); LYMPHOCYTES % (AUTO) 20.2 % (22.0-44.0); MEAN CORPUSCULAR HEMOGLOBIN 31.5 pg (26.0-34.0); MEAN CORPUSCULAR HGB CONC 35.2 G/dL (31.0-37.0); MEAN CORPUSCULAR VOLUME 89 fL (80-100); MONOCYTES # (AUTO) 1.4 K/uL (0.1-1.0); NEUTROPHILS # (AUTO) 5.2 K/uL (1.8-7.7); NEUTROPHILS % (AUTO) 60.3 % (40.0-70.0); PLATELET COUNT (AUTO) 163 K/uL (150-450); RED BLOOD CELL COUNT(AUTO) 2.64 MIL/uL (4.50-5.90); RED CELL DISTRIBUTION WIDTH 20.1 % (11.5-14.5)
[2017-11-22 08:46] LABS: CALCIUM, TOTAL 7.8 mg/dL (8.8-10.5); CREATININE 3.73 mg/dL (0.60-1.30); POTASSIUM 3.4 mmol/L (3.5-5.1)
[2017-11-22] MEDS: LACTULOSE 20 GM/30 ML SOLUTION UDCUP PO SCH ×2 (08:54→21:22)
[2017-11-22] MEDS: METOCLOPRAMIDE HCL 5 MG/ML 2 ML VIAL IVP SCH ×2 (08:55→16:36)
[2017-11-22] MEDS: RIFAXIMIN 550 MG TABLET PO SCH ×3 (08:55→21:22)
[2017-11-22] MEDS: PANTOPRAZOLE SODIUM 40 MG/VIAL IVP SCH ×2 (08:55→21:22)
[2017-11-22] MEDS: EPOETIN ALFA 10,000 UNITS/ML VIAL SQ SCH (09:02)
[2017-11-22 11:38] VITALS: BP 116/63
[2017-11-22 12:28] LABS: GLUCOMETER DEV NAME(LOC) 5N 1P; GLUCOSE,POINT OF CARE 70 MG/DL (70-110)
[2017-11-22 17:19] VITALS: BP 140/82
[2017-11-22 19:20] VITALS: BP 140/83
[2017-11-22 20:48] LABS: GLUCOMETER DEV NAME(LOC) 5N 1P; GLUCOSE,POINT OF CARE 87 MG/DL (70-110)
[2017-11-23 00:06] VITALS: BP 127/73
[2017-11-23] MEDS: METOCLOPRAMIDE HCL 5 MG/ML 2 ML VIAL IVP SCH ×2 (00:37→08:29)
[2017-11-23 04:55] VITALS: BP 140/70
[2017-11-23 07:01] LABS: CALCIUM, TOTAL 7.9 mg/dL (8.8-10.5); CREATININE 4.88 mg/dL (0.60-1.30); MAGNESIUM 1.7 mg/dL (1.80-2.40); PHOSPHORUS 2.4 mg/dL (2.5-4.9); POTASSIUM 3.3 mmol/L (3.5-5.1)
[2017-11-23 07:23] VITALS: BP 143/78
[2017-11-23] MEDS: LACTULOSE 20 GM/30 ML SOLUTION UDCUP PO SCH ×2 (08:26→21:03)
[2017-11-23] MEDS: PANTOPRAZOLE SODIUM 40 MG/VIAL IVP SCH ×2 (08:27→21:03)
[2017-11-23] MEDS: RIFAXIMIN 550 MG TABLET PO SCH ×3 (08:29→21:03)
[2017-11-23] MEDS: LEVOFLOXACIN 500 MG TABLET PO SCH (08:29)
[2017-11-23 09:18] LABS: GLUCOMETER DEV NAME(LOC) 5N 1P; GLUCOSE,POINT OF CARE 94 MG/DL (70-110)
[2017-11-23 10:59] LABS: INR 1.4 (0.9-1.1)
[2017-11-23 11:53] VITALS: BP 98/48
[2017-11-23] MEDS ORDERED: LEVOFLOXACIN 500 MG/D5% WATER 100 ML IV SCH (14:00)
[2017-11-23 15:58] VITALS: BP 122/78
[2017-11-23] MEDS ORDERED: HEPARIN SODIUM,PORCINE 1,000 UNITS/ML VIAL ONE (17:09)
[2017-11-23 19:52] VITALS: BP 145/87
[2017-11-24 00:06] VITALS: BP 134/73
[2017-11-24 04:28] VITALS: BP 140/77
[2017-11-24 07:34] VITALS: BP 137/77
[2017-11-24] MEDS: VITAMIN B COMP/VIT C/FOLIC ACID CAPSULE PO SCH (09:00)
[2017-11-24] MEDS: PANTOPRAZOLE SODIUM 40 MG/VIAL IVP SCH ×2 (09:00→21:44)
[2017-11-24] MEDS: LACTULOSE 20 GM/30 ML SOLUTION UDCUP PO SCH ×2 (09:00→21:00)
[2017-11-24] MEDS: RIFAXIMIN 550 MG TABLET PO SCH ×3 (09:00→21:44)
[2017-11-24 11:44] VITALS: BP 126/75
[2017-11-24] MEDS ORDERED: MIDAZOLAM HCL 2 MG/2 ML VIAL ONE (13:40)
[2017-11-24] MEDS ORDERED: FentaNYL CITRATE-PF 100 MCG/2 ML VIAL ONE (13:41)
[2017-11-24] MEDS ORDERED: HEPARIN SODIUM,PORCINE 1,000 UNITS/ML 10 ML VIAL ONE (13:54)
[2017-11-24] MEDS ORDERED: LIDOCAINE HCL/PF 1% 30 ML VIAL ONE (13:54)
[2017-11-24] MEDS ORDERED: HEPARIN SODIUM 1000 UNITS/NS 500 ML ONE (13:54)
[2017-11-24 14:42] LABS: GLUCOMETER DEV NAME(LOC) 5N 1P; GLUCOSE,POINT OF CARE 94 MG/DL (70-110)
[2017-11-24 14:43] LABS: GLUCOMETER DEV NAME(LOC) 5N 1P; GLUCOSE,POINT OF CARE 94 MG/DL (70-110)
[2017-11-24] MEDS ORDERED: MIDAZOLAM HCL 2 MG/2 ML VIAL IVP ONE (15:09)
[2017-11-24] MEDS ORDERED: FentaNYL CITRATE-PF 100 MCG/2 ML VIAL IVP ONE (15:09)
[2017-11-24 16:18] VITALS: BP 139/89
[2017-11-24 17:22] LABS: GLUCOMETER DEV NAME(LOC) 5S 2N; GLUCOSE,POINT OF CARE 98 MG/DL (70-110)
[2017-11-24 17:23] LABS: GLUCOMETER DEV NAME(LOC) 5S 2N; GLUCOSE,POINT OF CARE 76 MG/DL (70-110)
[2017-11-24 17:23] LABS: GLUCOMETER DEV NAME(LOC) 5S 2N; GLUCOSE,POINT OF CARE 101 MG/DL (70-110)
[2017-11-24 17:23] LABS: GLUCOMETER DEV NAME(LOC) 5S 2N; GLUCOSE,POINT OF CARE 113 MG/DL (70-110)
[2017-11-24 19:59] VITALS: BP 132/84
[2017-11-25 00:21] VITALS: BP 137/81
[2017-11-25 00:27] LABS: GLUCOMETER DEV NAME(LOC) 5N 2S; GLUCOSE,POINT OF CARE 107 MG/DL (70-110)
[2017-11-25 04:31] VITALS: BP 135/79
[2017-11-25] MEDS ORDERED: SODIUM CHLORIDE 0.9% 1,000 ML IV ONE ×2 (06:43→06:44)
[2017-11-25 07:24] VITALS: BP 145/90
[2017-11-25] MEDS: LACTULOSE 20 GM/30 ML SOLUTION UDCUP PO SCH ×2 (09:00→21:02)
[2017-11-25 09:04] LABS: CALCIUM, TOTAL 7.6 mg/dL (8.8-10.5); CREATININE 4.02 mg/dL (0.60-1.30); POTASSIUM 3.6 mmol/L (3.5-5.1)
[2017-11-25] MEDS ORDERED: DiphenhydrAMINE HCL 50 MG/ML VIAL IVP ONE (10:45)
[2017-11-25 11:09] VITALS: BP 128/73
[2017-11-25] MEDS: EPOETIN ALFA 10,000 UNITS/ML VIAL SQ SCH (13:23)
[2017-11-25] MEDS: PANTOPRAZOLE SODIUM 40 MG/VIAL IVP SCH ×2 (13:23→21:02)
[2017-11-25] MEDS: VITAMIN B COMP/VIT C/FOLIC ACID CAPSULE PO SCH (13:24)
[2017-11-25] MEDS: LEVOFLOXACIN 500 MG TABLET PO SCH (13:24)
[2017-11-25] MEDS: RIFAXIMIN 550 MG TABLET PO SCH ×3 (13:24→21:03)
[2017-11-25 15:38] VITALS: BP 115/64
[2017-11-25 19:28] LABS: GLUCOMETER DEV NAME(LOC) 5N 1P; GLUCOSE,POINT OF CARE 76 MG/DL (70-110)
[2017-11-25 19:34] VITALS: BP 129/80
[2017-11-25 19:48] LABS: GLUCOMETER DEV NAME(LOC) 5N 2S; GLUCOSE,POINT OF CARE 76 MG/DL (70-110)
[2017-11-25 19:48] LABS: GLUCOMETER DEV NAME(LOC) 5N 2S; GLUCOSE,POINT OF CARE 107 MG/DL (70-110)
[2017-11-25 21:02] LABS: GLUCOMETER DEV NAME(LOC) 5S 1M; GLUCOSE,POINT OF CARE 97 MG/DL (70-110)
[2017-11-25] MEDS ORDERED: HEPARIN SODIUM,PORCINE 1,000 UNITS/ML VIAL IVP ONE ×2 (22:23→22:26)
[2017-11-26 00:28] VITALS: BP 126/82
[2017-11-26 04:49] VITALS: BP 133/83
[2017-11-26 08:12] VITALS: BP 132/78
[2017-11-26] MEDS: LACTULOSE 20 GM/30 ML SOLUTION UDCUP PO SCH ×2 (08:46→21:26)
[2017-11-26] MEDS: RIFAXIMIN 550 MG TABLET PO SCH ×3 (08:46→21:26)
[2017-11-26] MEDS: VITAMIN B COMP/VIT C/FOLIC ACID CAPSULE PO SCH (08:46)
[2017-11-26] MEDS: PANTOPRAZOLE SODIUM 40 MG/VIAL IVP SCH ×2 (08:47→21:26)
[2017-11-26 09:31] LABS: CREATININE,URINE RANDOM 214.9 mg/dL (30.0-125.0); PROTEIN,URINE RANDOM 313 mg/dL (0-11.9)
[2017-11-26 10:08] LABS: APPEARANCE,URINE TURBID (CLEAR); GLUCOSE, URINE (UA) NEGATIVE (NEGATIVE); KETONES,URINE 15 mg/dL (NEGATIVE); LEUKOCYTE ESTERASE ,URINE SMALL (NEGATIVE); NITRATE,URINE POSITIVE (NEGATIVE); OCCULT BLOOD,URINE LARGE (NEGATIVE); PROTEIN,URINE SEE CONFIRM (NEGATIVE)
[2017-11-26 10:20] LABS: BILIRUBIN,URINE PRELIM. POSITIVE (NEGATIVE)
[2017-11-26 10:30] LABS: RBC,URINE >100 /HPF (0-2); SULFOSALICYLIC ACID,URINE 3+ (Negative)
[2017-11-26 10:32] LABS: BACTERIA,URINE Moderate /HPF (None Seen)
[2017-11-26 10:33] LABS: SQUAMOUS EPITHELIAL CELL,UR Many /LPF (None Seen)
[2017-11-26 11:28] VITALS: BP 135/78
[2017-11-26 16:07] VITALS: BP 138/80
[2017-11-26 16:58] LABS: GLUCOMETER DEV NAME(LOC) 5S 1M; GLUCOSE,POINT OF CARE 92 MG/DL (70-110)
[2017-11-26 16:58] LABS: GLUCOMETER DEV NAME(LOC) 5S 1M; GLUCOSE,POINT OF CARE 73 MG/DL (70-110)
[2017-11-26 19:46] VITALS: BP 128/79
[2017-11-27 05:30] VITALS: BP 143/82
[2017-11-27 07:40] VITALS: BP 133/80
[2017-11-27 07:43] LABS: GLUCOMETER DEV NAME(LOC) 5S 1M; GLUCOSE,POINT OF CARE 114 MG/DL (70-110)
[2017-11-27 07:43] LABS: GLUCOMETER DEV NAME(LOC) 5S 1M; GLUCOSE,POINT OF CARE 152 MG/DL (70-110)
[2017-11-27 07:43] LABS: GLUCOMETER DEV NAME(LOC) 5S 1M; GLUCOSE,POINT OF CARE 99 MG/DL (70-110)
[2017-11-27] MEDS: PANTOPRAZOLE SODIUM 40 MG/VIAL IVP SCH (08:06)
[2017-11-27] MEDS: RIFAXIMIN 550 MG TABLET PO SCH (08:06)
[2017-11-27] MEDS: VITAMIN B COMP/VIT C/FOLIC ACID CAPSULE PO SCH (08:06)
[2017-11-27] MEDS: EPOETIN ALFA 10,000 UNITS/ML VIAL SQ SCH (08:07)
[2017-11-27] MEDS: LACTULOSE 20 GM/30 ML SOLUTION UDCUP PO SCH (08:07)
[2017-11-27 11:27] VITALS: BP 136/81
[2017-11-27 12:02] LABS: GLUCOMETER DEV NAME(LOC) 5S 1M; GLUCOSE,POINT OF CARE 83 MG/DL (70-110)
[2017-11-27] MEDS ORDERED: EPOE10I SQ (12:50)
[2017-11-27] MEDS ORDERED: RIFAX550 PO (12:51)
[2017-11-27] MEDS ORDERED: LACT30L PO (12:51)
[2017-11-27] MEDS ORDERED: PANT40TA25 PO (12:51)
[2017-11-27] MEDS ORDERED: VITA1TAB22 PO (12:52)
[2017-11-27] MEDS ORDERED: ACET-2247 PO (13:01)
[2017-11-27] MEDS ORDERED: [UNRECOGNIZED DRUG - CODE] INJ (13:06)
[2017-11-27] MEDS ORDERED: AUD NEB (13:07)
[2017-11-27] MEDS ORDERED: INSREG SQ (13:08)
[2017-11-27] MEDS ORDERED: IPRNEB IH (13:09)
[2017-11-27 15:27] VITALS: BP 132/77
== END 2017-11-27 15:45 | DRG 720 ==
LOC: EMS 16:33 → ICU 19:00 → 5S 11-19 11:11
PROVIDERS: ADMIT Internal Medicine; ATTEND Internal Medicine
PROC: 0BH17EZ Insertion of Endotracheal Airway into Trachea, Via Natural or Artificial Opening (ICD-10-PCS; principal; 2017-11-12)
PROC: 5A1955Z Respiratory Ventilation, Greater than 96 Consecutive Hours (ICD-10-PCS; 2017-11-12)
PROC: 30233N1 Transfusion of Nonautologous Red Blood Cells into Peripheral Vein, Percutaneous Approach (ICD-10-PCS; 2017-11-13)
PROC: B543ZZA Ultrasonography of Right Jugular Veins, Guidance (ICD-10-PCS; 2017-11-14)
PROC: 5A1D70Z Performance of Urinary Filtration, Intermittent, Less than 6 Hours Per Day (ICD-10-PCS; 2017-11-14)
PROC: 02HV33Z Insertion of Infusion Device into Superior Vena Cava, Percutaneous Approach (ICD-10-PCS; 2017-11-14)
PROC: 0JH63XZ Insertion of Tunneled Vascular Access Device into Chest Subcutaneous Tissue and Fascia, Percutaneous Approach (ICD-10-PCS; 2017-11-24)
PROC: 02HV33Z Insertion of Infusion Device into Superior Vena Cava, Percutaneous Approach (ICD-10-PCS; 2017-11-24)
PROC: B518ZZA Fluoroscopy of Superior Vena Cava, Guidance (ICD-10-PCS; 2017-11-24)
DX: A41.51 Sepsis due to Escherichia coli [E. coli] (principal); J96.00 Acute respiratory failure, unspecified whether with hypoxia or hypercapnia; J69.0 Pneumonitis due to inhalation of food and vomit; G93.41 Metabolic encephalopathy; E43 Unspecified severe protein-calorie malnutrition; I50.31 Acute diastolic (congestive) heart failure; N17.9 Acute kidney failure, unspecified; D68.9 Coagulation defect, unspecified; N18.6 End stage renal disease; K70.31 Alcoholic cirrhosis of liver with ascites; N39.0 Urinary tract infection, site not specified; E87.1 Hypo-osmolality and hyponatremia; R65.20 Severe sepsis without septic shock; B86 Scabies; D63.8 Anemia in other chronic diseases classified elsewhere; E83.39 Other disorders of phosphorus metabolism; E83.42 Hypomagnesemia; E87.4 Mixed disorder of acid-base balance; E87.6 Hypokalemia; K72.90 Hepatic failure, unspecified without coma; Z99.11 Dependence on respirator [ventilator] status; Z68.21 Body mass index [BMI] 21.0-21.9, adult
CPT/HCPCS: 31500; 36245; 36561; 51702; 71250; 76770; 76937; 80307; 82271; 82570; 82595; 82607; 82728; 82746; 82805; 82962; 83540; 83550; 83605; 83735; 83930; 83935; 84100; 84132; 84145; 84156; 84300; 84439; 84443; 85007; 85014; 85018; 86038; 86160; 86162; 86225; 86256; 86704; 86706; 86803; 86850; 86900; 86901; 86920; 87040; 87070; 87081; 87086; 87205; 87340; 87449; 87798; 87804; 87899; 90935; 92507; 92526; 92610; 93005; 93306; 93925; 93970; 94002; 94003; 96361; 96365; 96367; 96375; 97110; 97116; 97166; 97530; 97535; 99291; C9113; J0131; J0330; J0456; J0696; J0885; J1644; J1940; J1956; J2150; J2250; J2270; J2543; J2704; J2765; J2916; J3010; J3370; J3475; J3480; J3490; J7030; J7040; J7050; J7060; P9016; P9047

== ENCOUNTER 2018-12-05 16:39 | Emergency (ER) | payer MEDICARE, OTHER ==
[~2018-12-05] VITALS: Ht 162.6 cm; Wt 63.6 kg
[~2018-12-05 16:39] MED LIST: ACET-2247 PO; AUD NEB; EPOE10I SQ; INSREG SQ; IPRNEB IH; LACT30L PO; PANT40TA25 PO; RIFAX550 PO; VITA1TAB22 PO; [UNRECOGNIZED DRUG - CODE] INJ
[2018-12-05] MEDS ORDERED: TRAZ-219 PO (16:57)
[2018-12-05] MEDS ORDERED: ERGO500014 PO (16:57)
[2018-12-05] MEDS ORDERED: POVIDONE-IODINE 10% 15 ML SOLUTION UD TP ONE (17:30)
[2018-12-05] MEDS ORDERED: BACITRACIN 0.9 GM PACKET OINTMENT TP ONE ×2 (17:30→20:15)
[2018-12-05] MEDS ORDERED: LIDOCAINE 1% 10 ML VIAL INJ ONE (17:30)
[2018-12-05] MEDS ORDERED: PERTUSS(ACELL),DIPH,TET VAC/PF 0.5 ML VIAL IM ONE (17:30)
[2018-12-05] MEDS ORDERED: OxyCODONE HCL/ACETAMINOPHEN 5-325 MG TABLET PO ONE (18:15)
[2018-12-05] MEDS ORDERED: CefTRIAXone 1 GM/DEXTROSE 50 ML IV ONE (19:45)
[2018-12-05 20:53] VITALS: BP 119/75
== END 2018-12-05 21:30 | disposition home or self-care (01) ==
LOC: EMS 16:40
DX: S62.634A Displaced fracture of distal phalanx of right ring finger, initial encounter for closed fracture (principal); S61.214A Laceration without foreign body of right ring finger without damage to nail, initial encounter; I11.0 Hypertensive heart disease with heart failure; I50.9 Heart failure, unspecified; E11.9 Type 2 diabetes mellitus without complications; Z79.4 Long term (current) use of insulin; W25.XXXA Contact with sharp glass, initial encounter; Y93.89 Activity, other specified; Y92.89 Other specified places as the place of occurrence of the external cause; Y99.8 Other external cause status
CPT/HCPCS: 12002; 73140; 90471; 90715; 96365; 99283; J0696; J3490

== ENCOUNTER 2018-12-07 16:03 | Emergency (ER) | payer MEDICARE, OTHER ==
[~2018-12-07] VITALS: Ht 165.1 cm; Wt 70.0 kg
[~2018-12-07 16:03] MED LIST changes: -ACET-2247 PO; -AUD NEB; -EPOE10I SQ; +ERGO500014 PO; -IPRNEB IH; -LACT30L PO; +TRAZ-219 PO; -[UNRECOGNIZED DRUG - CODE] INJ
[2018-12-07 16:06] VITALS: BP 103/60
[2018-12-07] MEDS ORDERED: ANTIBIOTIC PO (16:11)
[2018-12-07] MEDS ORDERED: PAIN MED PO (16:11)
[2018-12-12 12:39] LABS: GLUCOSE,POINT OF CARE 104 MG/DL (70-110)
== END 2018-12-07 18:53 | disposition left against medical advice (07) ==
LOC: EMS 16:06
DX: S61.214D Laceration without foreign body of right ring finger without damage to nail, subsequent encounter (principal); X58.XXXD Exposure to other specified factors, subsequent encounter